=== PATIENT | female | born 1950 | race African-American/Black ===

== ENCOUNTER 2018-03-24 03:17 | Inpatient (IN) | payer OTHER, BC ==
[2018-03-24] VITALS (7 sets, daily range): BP systolic 148–197; BP diastolic 79–90
[~2018-03-24] VITALS: Ht 167.6 cm; Wt 104.3 kg
[2018-03-24 04:02] LABS: ABSOLUTE NEUTROPHILS 10.9 thou/uL (1.4-8.2); BASOPHILS 0.4 % (0.0-2.0); EOSINOPHILS 0.5 % (0.0-3.0); HEMATOCRIT 38.6 % (37.0-47.0); HEMOGLOBIN 13.1 gm/dL (12.0-15.0); LYMPHOCYTES 13.4 % (24.0-44.0); MCH 30.3 pg (26.0-34.0); MONOCYTES 6.3 % (1.0-8.0); PLATELET COUNT 296 thou/uL (150-400); POLYS 79.4 % (36.0-66.0); RBC 4.34 mil/uL (4.20-5.00); RDW 13.8 % (10.5-14.5); WBC 13.8 thou/uL (4.0-11.0)
[2018-03-24 04:05] LABS: ANION GAP 12 mmol/L (7-16); BUN 12 mg/dL (7-18); CALCIUM 9.6 mg/dL (8.5-10.1); CHLORIDE 101 mmol/L (98-107); CO2 25 mmol/L (21-32); CREATININE 0.9 mg/dL (0.6-1.0); GLUCOSE 146 mg/dL (74-106); POTASSIUM 3.6 mmol/L (3.5-5.1); SODIUM 138 mmol/L (136-145)
[2018-03-24 04:14] LABS: TROPONIN-I <0.06 ng/mL (<0.06)
--- NOTE | 2018-03-24 08:32 | EKG ---
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
[2018-03-24 09:52] LABS: CHOLESTEROL 208 mg/dL (<200); HDL CHOLESTEROL 56 mg/dL (>40); LDL CHOLESTEROL 138 mg/dL (<100); TC:HDL 3.7 Ratio (Not establshd); TRIGLYCERIDE 72 mg/dL (<150); VLDL 14 mg/dL (<40)
--- NOTE | 2018-03-24 11:08 | NUR ---
ADM PT CAME IN FROM E.R. PT ORIENTED TO ROOM. ADM ORDERS CARRIED OUT. PT REMAINED ON 2L O2. DENIES PAIN. INSTRUCTED IN COUGHING DEEP BREATHING EXERCISE. WILL CONTINUE TO MONITOR.
--- NOTE | 2018-03-24 14:36 | NUR ---
ORDERS RECEIVED FOR EVAL AND TREAT. SPOKE WITH Pt WHO STATES SHE IS NOT HAVING ANY DIFFICULTY WITH MOBILITY. OBSERVED Pt STAND AND AMBULATE IN HER ROOM WITHOUT DIFFICULTY. Pt DECLINING A FORMAL P.T. EVAL BUT APPEARS SAFE FOR HOME WHENEVER MEDICALLY CLEAR
[2018-03-25 03:10] LABS: GLYCOHEMOGLOBIN (HGB A1C) 5.9 % (4.8-5.6)
[2018-03-25 04:00] VITALS: BP 170/80
[2018-03-25 04:21] LABS: ABSOLUTE NEUTROPHILS 10.5 thou/uL (1.4-8.2); BASOPHILS 0.1 % (0.0-2.0); HEMATOCRIT 37.6 % (37.0-47.0); HEMOGLOBIN 12.4 gm/dL (12.0-15.0); LYMPHOCYTES 5.6 % (24.0-44.0); MCH 29.5 pg (26.0-34.0); MCHC 32.9 g/dL (28.0-37.0); MCV 89.7 fL (80.0-100.0); MONOCYTES 1.3 % (1.0-8.0); PLATELET COUNT 288 thou/uL (150-400); RBC 4.19 mil/uL (4.20-5.00); RDW 13.9 % (10.5-14.5); WBC 11.3 thou/uL (4.0-11.0)
--- NOTE | 2018-03-25 04:28 | NUR ---
ASSUMED CARE AT 1900 03/24/18, PT ASSESSMENT ANS VSS COMPLETE PER MED-SURG TELE ORDERS, PT ALERT AND ORIENTED X4, PT ABLE TO FOLLOW COMMANDS. PT INITIALLY ON 2L OF , SATS IN THE HIGH 90'S, PT NOW ON RA SATS 95%, PT HAS SOB, INCREASED HR WITH EXERTION, BP OF PT IS ELEVATED WELL, RN CONCERNED ABOUT METOPROLOL DOSE BEING GIVEN. JONH COSTA CALLED, NEW ORDERS RECIEVED. PT BS OVER 200, INSULIN COVERAGE GIVEN BY ME, RN EDUCATES THE PT ON WHY INSULIN WAS GIVEN, PT STATES THAT SHE HAS NOT RECIEVED INSULIN AT ALL DURING THIS ADMISSION, EVEN IF IT IS CHARTED THAT SHE WAS GIVEN INSULIN DURING THE DAY SHIFT 03/24/18.PLAN OF CARE CONT TO MONITOR.
[2018-03-25 05:10] LABS: CALCIUM 9.6 mg/dL (8.5-10.1); CREATININE 0.9 mg/dL (0.6-1.0); MAGNESIUM 2.2 mg/dL (1.8-2.4); POTASSIUM 3.8 mmol/L (3.5-5.1)
[2018-03-25 07:20] VITALS: BP 172/96
[2018-03-25 14:34] VITALS: BP 148/67
[2018-03-25 19:09] VITALS: BP 166/76
--- NOTE | 2018-03-25 20:52 | NUR ---
PATIENT ALERT AND ORIENTED AND IMPROVING WITH RESPIRATORY STATUS. PATIENT IS ABLE TO AMBULATE TO BATHROOM. POSSIBLY WILL DISCHARGE HOME TOMORROW.
[2018-03-26 03:10] VITALS: BP 158/72
--- NOTE | 2018-03-26 06:27 | NUR ---
Pt alert and orient x 4. SOB upon exertion. RA or O2 2L NC PRN. Frequent loose coughs, no sputum noted. Denies pain or any other discomfort at this time. VSS. No apparent distress noted. Fall precautions maintained. Call light within reach. Will continue to monitor.
--- NOTE | 2018-03-26 10:55 | NUR ---
PT ADMITTEDREL[facility] TO [facility]. CM REVIEWED CHART AND SPOKE WITH CARE TEAM. CM MET WITH PT AT BEDSIDE THIS DAY. PT IS A&O X4. CM ROLE INTRODUCED. PT INDICATED SHE LIVES IN A HOUSE WITH HER SONS WITH 4 STEPS TO ENTER AND 12 STEPS TO BASEMENT LAUNDRY. PT INDICATED NO DME OR HH HX. PT INDICATED SHE PLANS TO RETURN HOME ONCE MEDICALLY STABLE. CM TO FOLLOW INDICATED WITH DC PLANNING.
--- NOTE | 2018-03-26 15:18 | NUR ---
Assumed pt care at 0645am, pt is a/ox4 with no concerns or requests at this time. will continue to montior pt thoughout shift
[2018-03-26 16:00] VITALS: BP 170/74
[2018-03-26 19:38] VITALS: BP 150/71
--- NOTE | 2018-03-27 02:44 | NUR ---
PT RESTED THROUGH MOST OF THE NIGHT WITH NO ISSUES PT USED CALL LIGHT EFFECTIVELY PT UP AD LETITIA.
[2018-03-27 04:32] VITALS: BP 140/56
[2018-03-27 07:28] VITALS: BP 140/63
[2018-03-27] MEDS ORDERED: AMLODIPINE BESY10 MG PO (10:35)
[2018-03-27] MEDS ORDERED: LEVAQUIN 750 M750 MG PO (10:35)
[2018-03-27] MEDS ORDERED: MUCINEX600 MG PO (10:35)
[2018-03-27 11:23] VITALS: BP 140/63
--- NOTE | 2018-03-27 12:54 | NUR ---
Pt vs stable, still with cough but loose. Pt had no complaints or issues identified. DC orders given, dc instruction and prescriptions given to ot. Pt did request if she could continue breathing treatments at home, referred to . deemed it not necessary for the breathing treatments to continue at home, informed the pt. Awaiting for her daughter to pick her up after office hours.
--- NOTE | 2018-03-27 15:16 | NUR ---
PT IS TO DISCHARGE HOME THIS DAY WITH NO NEEDS. NO OTHER CM INTERVENTION INDICATED AT THIS TIME. CASE CLOSED.
== END 2018-03-27 18:48 | disposition home or self-care (01) | DRG 871 ==
LOC: ER 03:17 → EROBS 05:53 → 4W 05:53
PROVIDERS: Emergency Medicine; Nurse Practitioner; ADMIT Hospitalist
DX: A41.9 Sepsis, unspecified organism (principal); J96.01 Acute respiratory failure with hypoxia; J18.1 Lobar pneumonia, unspecified organism; R00.0 Tachycardia, unspecified; F12.90 Cannabis use, unspecified, uncomplicated; Z71.51 Drug abuse counseling and surveillance of drug abuser; Z79.899 Other long term (current) drug therapy
CPT/HCPCS: 10045

== ENCOUNTER → 2018-04-14 | Outpatient (CLI) | payer OTHER, BC ==
[~2018-04-14] MED LIST: AMLODIPINE BESY10 MG PO; LEVAQUIN 750 M750 MG PO; MUCINEX600 MG PO
== END ==
LOC: RAD 10:33
DX: I77.810 Thoracic aortic ectasia (principal)